=== PATIENT | female | born 1975 | race Caucasian/White ===

== ENCOUNTER 2018-10-17 12:13 | Emergency (ER) | payer SELFPAY ==
[~2018-10-17] VITALS: Ht 170.2 cm; Wt 52.2 kg
--- NOTE | 2018-10-17 12:44 | NUR ---
BIBSELF FROM HOME C/O CP AND PALPITATIONS, PT AAOX4, RESPIRATIONS EVEN AND UNLABORED, NO SOB, NAD NOTED, PT ON MONITOR, VSS. PENDING ER PROVIDER LASHON
[2018-10-17 13:00] LABS: BASOPHILS % (AUTO) 0.5 % (0.0-2.0); EOSINOPHILS % (AUTO) 1.4 % (0.0-6.0); HEMATOCRIT 37 % (33-45); HEMOGLOBIN 12.3 g/dL (11.5-14.8); LYMPHOCYTES # (AUTO) 1.5 /CMM (0.8-4.8); LYMPHOCYTES % (AUTO) 25.8 % (20.0-44.0); MEAN CORPUSCULAR HGB CONC 33 g/dl (31.0-36.0); MEAN CORPUSCULAR VOLUME 87 fL (82-100); MONOCYTES # (AUTO) 0.5 /CMM (0.1-1.30); NEUTROPHILS # (AUTO) 3.6 /CMM (1.8-8.9); NEUTROPHILS % (AUTO) 64.3 % (43.0-81.0); PLATELET COUNT (AUTO) 138 /CMM (150-450); RED BLOOD CELL COUNT(AUTO) 4.25 MIL/uL (4.0-5.2); WHITE BLOOD COUNT (AUTO) 5.7 K/uL (4.3-11.0)
[2018-10-17] MEDS ORDERED: IV NS 0.9% 500 ML BAG IV ONE (13:00)
[2018-10-17] MEDS ORDERED: KETOROLAC TROMETHAMINE INJ 30 MG/ML VIAL IV ONE (13:00)
[2018-10-17] MEDS ORDERED: LORAZEPAM INJ 2 MG/ML VIAL IV ONE (13:00)
[2018-10-17] MEDS ORDERED: ONDANSETRON HCL/PF 4 MG/2 ML VIAL IVP ONE (13:00)
[2018-10-17 13:10] LABS: CALCIUM, SERUM 9.2 mg/dL (8.5-10.1); CARBON DIOXIDE 29 mmol/L (21-32); CHLORIDE 104 mmol/L (98-107); CREATININE 0.7 mg/dL (0.6-1.3); GLUCOSE 97 mg/dL (74-106); POTASSIUM 3.8 mmol/L (3.5-5.1); SODIUM SERUM 139 mmol/L (136-145); UREA NITROGEN, BLOOD 10 mg/dL (7-18)
[2018-10-17] MEDS ORDERED: ONDANSETRON HCL/PF 4 MG/2 ML VIAL ONE (13:20)
[2018-10-17] MEDS ORDERED: KETOROLAC TROMETHAMINE 15 MG/ML VIAL ONE (13:20)
[2018-10-17] MEDS ORDERED: LORAZEPAM INJ 2 MG/ML VIAL ONE (13:21)
[2018-10-17 14:15] VITALS: BP 139/72
--- NOTE | 2018-10-17 14:31 | NUR ---
Patient discharged to home in stable condition. Written and verbal after care instructions given. Patient verbalizes understanding of instruction. IV removed. Catheter intact and site benign. Pressure and 4x4 applied to site. No bleeding noted.
== END 2018-10-17 14:32 | disposition home or self-care (01) ==
LOC: ER 12:13
DX: R07.89 Other chest pain (principal); F41.9 Anxiety disorder, unspecified; R42 Dizziness and giddiness
CPT/HCPCS: 36415; 70450; 71045; 80048; 84484; 85025; 85378; 85730; 93005; 96361; 96374; 96375; 99284; A4606; J1885; J2060; J2405; Z7610

== ENCOUNTER 2019-08-05 20:19 | Emergency (ER) | payer SELFPAY ==
[~2019-08-05] VITALS: Ht 172.7 cm; Wt 52.2 kg
[2019-08-05 20:55] LABS: BASOPHILS # (AUTO) 0.1 /CMM (0.0-0.2); BASOPHILS % (AUTO) 0.8 % (0.0-2.0); EOSINOPHILS % (AUTO) 1.8 % (0.0-6.0); HEMATOCRIT 37 % (33-45); HEMOGLOBIN 12.2 g/dL (11.5-14.8); LYMPHOCYTES # (AUTO) 2.2 /CMM (0.8-4.8); LYMPHOCYTES % (AUTO) 28.6 % (20.0-44.0); MEAN CORPUSCULAR HGB CONC 33 g/dl (31.0-36.0); MEAN CORPUSCULAR VOLUME 87 fL (82-100); MONOCYTES # (AUTO) 0.6 /CMM (0.1-1.30); MONOCYTES % (AUTO) 7.4 % (2.0-12.0); NEUTROPHILS # (AUTO) 4.8 /CMM (1.8-8.9); NEUTROPHILS % (AUTO) 61.4 % (43.0-81.0); PLATELET COUNT (AUTO) 176 /CMM (150-450); RED BLOOD CELL COUNT(AUTO) 4.23 MIL/uL (4.0-5.2); WHITE BLOOD COUNT (AUTO) 7.8 K/uL (4.3-11.0)
[2019-08-05 20:55] LABS: APPEARANCE,URINE Clear (CLEAR); BILIRUBIN,URINE Negative (NEGATIVE); BLOOD, URINE Moderate Ery/uL (NEGATIVE); COLOR,URINE Yellow (YELLOW); KETONES,URINE Negative (NEGATIVE); LEUKOCYTE ESTERASE ,URINE Negative (NEGATIVE); NITRITE, URINE Negative (NEGATIVE); PROTEIN,URINE Negative (NEGATIVE); UGLUCOSE Negative (NEGATIVE); UROBILINOGEN,URINE 0.2 EU/dL (0.2)
--- NOTE | 2019-08-05 21:00 | NUR ---
BIBSELF C/O VAGINAL BLEEDING X6 HR. -PELVIC PAIN/ABDOMINAL PAIN, -DYSURIA, ABOUT 6 WEEKS , TO ER BED 16.
[2019-08-05 21:02] LABS: CREATININE 0.7 mg/dL (0.6-1.3); POTASSIUM 3.5 mmol/L (3.5-5.1)
[2019-08-05 21:17] LABS: BACTERIA,URINE Rare /HPF (None Seen); RBC,URINE 21-50 /HPF (0-2); SQUAMOUS EPITHELIAL CELL,UR Few /HPF (None Seen); WBC,URINE NONE SEEN /HPF (0-3)
--- NOTE | 2019-08-05 22:25 | NUR ---
Patient discharged to home in stable condition. Written and verbal after care instructions given. Patient verbalizes understanding of instruction.
[2019-08-05 22:26] VITALS: BP 129/84
== END 2019-08-05 22:26 | disposition home or self-care (01) ==
LOC: ER 20:21
DX: O20.0 Threatened abortion (principal); Z3A.01 Less than 8 weeks gestation of pregnancy
CPT/HCPCS: 36415; 76805-TC; 80048-TC; 81000-TC; 84702-TC; 84703-TC; 85025-TC; 85730-TC

== ENCOUNTER 2022-03-20 00:16 | Emergency (ER) | payer BC ==
[~2022-03-20] VITALS: Ht 172.7 cm; Wt 54.4 kg
[2022-03-20 01:56] VITALS: BP 124/68
[2022-03-20] MEDS ORDERED: AMOX/CLAVULANATE 875 MG TABLET PO ONE (02:00)
--- NOTE | 2022-03-20 02:00 | NUR ---
JEANIE C.O Femi LEG ABRASIONS DUE TO FRIEND'S CAT UNSURE FOR TDAP
[2022-03-20] MEDS ORDERED: AMOX-430 PO (02:02)
[2022-03-20] MEDS ORDERED: AMOX/CLAVULANATE 875 MG TABLET ONE (02:11)
--- NOTE | 2022-03-20 02:13 | NUR ---
Patient discharged to home in stable condition. Written and verbal after care instructions given. Patient verbalizes understanding of instruction.
[2022-03-20] MEDS ORDERED: TDAP [DIPH/PERTUSSIS/TET] 0.5 ML VIAL IM ONE (02:25)
== END 2022-03-20 02:15 | disposition home or self-care (01) ==
LOC: ER 00:21
DX: S80.811A Abrasion, right lower leg, initial encounter (principal); S70.311A Abrasion, right thigh, initial encounter; W55.03XA Scratched by cat, initial encounter; Y93.89 Activity, other specified; Y92.89 Other specified places as the place of occurrence of the external cause; Y99.8 Other external cause status
CPT/HCPCS: 90715